=== PATIENT | male | born 1975 | race Caucasian/White ===

== ENCOUNTER 2021-04-20 07:02 | Emergency (ER) | payer OTHER ==
[~2021-04-20] VITALS: Ht 152.4 cm; Wt 102.1 kg
[2021-04-20] MEDS ORDERED: SYNTHROID50 MCG PO (07:14)
[2021-04-20] MEDS ORDERED: KETO10TA2 PO (12:28)
[2021-04-20] MEDS ORDERED: SKELAXIN800 MG PO (12:28)
[2021-04-20] MEDS ORDERED: SYNTHROID100 MCG PO (12:28)
[2021-04-20] MEDS ORDERED: ZITHROMAX500 MG PO (12:28)
== END 2021-04-20 12:37 ==
LOC: ER 07:02
DX: M54.9 Dorsalgia, unspecified (principal); E03.9 Hypothyroidism, unspecified; R07.9 Chest pain, unspecified; R06.02 Shortness of breath

== ENCOUNTER 2022-01-22 22:49 | Emergency (ER) | payer OTHER ==
[~2022-01-22] VITALS: Ht 177.8 cm; Wt 97.5 kg
[~2022-01-22 22:49] MED LIST: KETO10TA2 PO; SKELAXIN800 MG PO; SYNTHROID100 MCG PO; SYNTHROID50 MCG PO; ZITHROMAX500 MG PO
[2022-01-23] MEDS ORDERED: DICLOFENAC SODI75 MG PO (02:49)
[2022-01-23] MEDS ORDERED: COZAAR50 MG PO (02:49)
== END 2022-01-23 02:50 | disposition home or self-care (01) ==
LOC: ER 22:49
DX: R51.9 Headache, unspecified (principal); I10 Essential (primary) hypertension; E03.9 Hypothyroidism, unspecified

== ENCOUNTER 2022-01-27 00:50 | Emergency (ER) | payer OTHER ==
[~2022-01-27] VITALS: Ht 177.8 cm; Wt 106.6 kg
[~2022-01-27 00:50] MED LIST changes: +COZAAR50 MG PO; +DICLOFENAC SODI75 MG PO
[2022-01-27] MEDS ORDERED: HYDROCHLOROTHIA25 MG PO (04:25)
[2022-01-27] MEDS ORDERED: COZAAR100 MG PO (04:25)
== END 2022-01-27 04:31 ==
LOC: ER 00:50
DX: I10 Essential (primary) hypertension (principal)

== ENCOUNTER 2022-05-27 06:21 | Emergency (ER) | payer OTHER ==
[~2022-05-27] VITALS: Ht 177.8 cm; Wt 104.3 kg
[~2022-05-27 06:21] MED LIST changes: +COZAAR100 MG PO; +HYDROCHLOROTHIA25 MG PO
[2022-05-27] MEDS ORDERED: ATORVASTATIN CA20 MG (06:45)
[2022-05-27] MEDS ORDERED: TOPROL XL50 M1 (06:45)
== END 2022-05-27 12:31 | disposition home or self-care (01) ==
LOC: ER 06:21
DX: R07.9 Chest pain, unspecified (principal); I10 Essential (primary) hypertension

== ENCOUNTER 2022-09-06 11:48 | Emergency (ER) | payer OTHER ==
[~2022-09-06] VITALS: Ht 177.8 cm; Wt 102.1 kg
[~2022-09-06 11:48] MED LIST changes: +ATORVASTATIN CA20 MG; +TOPROL XL50 M1
[2022-09-06] MEDS ORDERED: SYNTHROID112 MCG (12:01)
== END 2022-09-06 14:44 | disposition home or self-care (01) ==
LOC: ER 11:48
DX: I10 Essential (primary) hypertension (principal); Z20.822 Contact with and (suspected) exposure to COVID-19

== ENCOUNTER 2022-09-10 02:21 | Emergency (ER) | payer OTHER ==
[~2022-09-10] VITALS: Ht 177.8 cm; Wt 104.3 kg
[~2022-09-10 02:21] MED LIST changes: +SYNTHROID112 MCG
[2022-09-10] MEDS ORDERED: METAXALONE800 MG PO (07:33)
[2022-09-10] MEDS ORDERED: MEDROLPACK PO (07:33)
[2022-09-10] MEDS ORDERED: CELEBREX200MG PO (07:33)
== END 2022-09-10 13:38 | disposition home or self-care (01) ==
LOC: ER 02:21
DX: R07.9 Chest pain, unspecified (principal); R40.2412 Glasgow coma scale score 13-15, at arrival to emergency department

== ENCOUNTER 2022-09-30 05:34 | Emergency (ER) | payer OTHER ==
[~2022-09-30] VITALS: Ht 167.6 cm; Wt 100.7 kg
[~2022-09-30 05:34] MED LIST changes: +CELEBREX200MG PO; +MEDROLPACK PO; +METAXALONE800 MG PO
== END 2022-09-30 15:15 | disposition home or self-care (01) ==
LOC: ER 05:34
DX: I10 Essential (primary) hypertension (principal)

== ENCOUNTER 2023-01-31 00:01 | Emergency (ER) | payer OTHER ==
[~2023-01-31] VITALS: Ht 177.8 cm; Wt 95.3 kg
== END 2023-01-31 03:33 | disposition home or self-care (01) ==
LOC: ER 00:01
DX: G24.3 Spasmodic torticollis (principal)

== ENCOUNTER 2023-03-09 22:52 | Emergency (ER) | payer OTHER ==
[~2023-03-09] VITALS: Ht 177.8 cm; Wt 93.9 kg
[2023-03-09] MEDS ORDERED: NORFLEX100MG PO (23:42)
[2023-03-09] MEDS ORDERED: DICLOFENAC POTA50 MG PO (23:42)
== END 2023-03-09 23:52 | disposition home or self-care (01) ==
LOC: ER 22:52
DX: M62.838 Other muscle spasm (principal); I10 Essential (primary) hypertension; E03.9 Hypothyroidism, unspecified

== ENCOUNTER 2023-04-22 02:24 | Emergency (ER) | payer OTHER ==
[~2023-04-22] VITALS: Ht 177.8 cm; Wt 95.3 kg
[~2023-04-22 02:24] MED LIST changes: +DICLOFENAC POTA50 MG PO; +NORFLEX100MG PO
== END 2023-04-22 05:45 | disposition home or self-care (01) ==
LOC: ER 02:24
DX: I10 Essential (primary) hypertension (principal)

== ENCOUNTER 2023-11-30 22:19 | Emergency (ER) | payer OTHER ==
[~2023-11-30] VITALS: Ht 177.8 cm; Wt 102.1 kg
[2023-11-30] MEDS ORDERED: KETOROLAC TROMETHAMINE 30 MG VIAL IM STA (23:13)
== END 2023-12-01 01:34 | disposition home or self-care (01) ==
LOC: ER 22:20
DX: M62.830 Muscle spasm of back (principal)